=== PATIENT | male | born 1950 | race African-American/Black ===

== ENCOUNTER 2016-04-12 08:10 | Observation (INO) | payer MEDICARE, BC ==
[~2016-04-12] VITALS: Ht 180.3 cm; Wt 93.0 kg
[2016-04-12] VITALS (8 sets, daily range): BP systolic 121–147; BP diastolic 66–82; PULSE 72–90; RESP 16–18; TEMP 96.3–98.9; O2SAT 97–100
--- NOTE | 2016-04-12 08:25 | PD ---
HPI Chief Complaint: seizure Time Seen by Provider: 08:18 Travel History International Travel<30 days: No Contact w/Intl Traveler<30days: No Traveled to known affect area: No History of Present Illness HPI This is a 65-year-old gentleman with a history of seizure 3 years ago, who presents today via EMS after having a witnessed seizure by his . reported this was a "partial seizure" according to EMS. When paramedics arrived , the patient was not actively seizing. They state that he was postictal and was alert and oriented to person and year. Per EMS, he is not taking any medications. His only past medical history was the seizure 3 years ago. The patient is somewhat confused however is able to tell me he is at a hospital and his name. He states he's here in [place] with his to flower buncher or picker his [id number]'s furniture and taken back to [place] where they reside. Patient denies any headache. He did have one episode of emesis just prior to arrival. He denies any nausea at the time of my examination. Patient's arrived roughly 20 minutes after he arrived via EMS. She states that he had what sounds like a tonic-clonic episode. She states this was very similar to his episode 3 years ago however was not as "violent". She states that he had a complete workup 3 years ago and they were unable to find anything. At that time they did not recommend putting him on any medications. PFS Past Medical History Seizures: Yes (3 years ago, one episode) Social History Tobacco Use: No Allergies-Medications (Allergen,Severity, Reaction): Coded Allergies: No Known Allergies (Unverified , 04/12/16) Review of Systems ROS Limitations: Altered Mental Status (mild confusion and postictal state) Except as stated in HPI: all other systems reviewed are Neg General / Constitutional: No: Fever, Chills Eyes: No: Diploplia HENT: No: Headaches Cardiovascular: No: Chest Pain or Discomfort, Palpitations Respiratory: No: Cough, Shortness of Breath Gastrointestinal: Positive: Vomiting, No: Nausea (not currently however he was nauseous and vomited prior to arrival), Abdominal Pain Genitourinary: No: Incontinence Musculoskeletal: No: Weakness, Pain Neurologic: Positive: Seizures (prior to arrival. Reported as "partial" there was no description of the seizure other than that.), No: Weakness, Dizziness, Headache Physical Exam Narrative GENERAL: Well-developed well-nourished gentleman in no acute respiratory distress. SKIN: Warm and dry. HEAD: Atraumatic. Normocephalic. EYES: Pupils equal and round. No scleral icterus. No injection or drainage. ENT: No nasal bleeding or discharge. Mucous membranes pink and moist. NECK: Trachea midline. Supple. CARDIOVASCULAR: Regular rate and rhythm. No murmur appreciated. RESPIRATORY: No accessory muscle use. Clear to auscultation. Breath sounds equal bilaterally. GASTROINTESTINAL: Abdomen soft, non-tender, nondistended. MUSCULOSKELETAL: No obvious deformities. No clubbing. No cyanosis. No edema. NEUROLOGICAL: Awake and confused. No obvious cranial nerve deficits. Motor grossly within normal limits. Normal speech. Data Data Last Documented VS Vital Signs Date Time Temp Pulse Resp B/P Pulse Ox O2 Delivery O2 Flow Rate FiO2 04/12/16 08:51 97 Nasal Cannula 2 04/12/16 08:51 78 16 121/66 04/12/16 08:19 98.9 Orders Complete Blood Count With Diff (04/12/16 08:18) Ct Brain W/O Iv Contrast(Rout) (04/12/16 ) Blood Glucose (04/12/16 08:18) Ecg Monitoring (04/12/16 08:18) Iv Access Insert/Monitor (04/12/16 08:18) Oximetry (04/12/16 08:18) Comprehensive Metabolic Panel (04/12/16 08:18) Electrocardiogram (04/12/16 08:26) Ondansetron Inj (Zofran Inj) (04/12/16 09:30) Labs Laboratory Tests Test 04/12/16 08:40 White Blood Count 3.5 TH/MM3 Red Blood Count 4.57 MIL/MM3 Hemoglobin 14.0 GM/DL Hematocrit 40.2 % Mean Corpuscular Volume 88.0 FL Mean Corpuscular Hemoglobin 30.7 PG Mean Corpuscular Hemoglobin 34.9 % Concent Red Cell Distribution Width 13.8 % Platelet Count 143 TH/MM3 Mean Platelet Volume 8.7 FL Neutrophils (%) (Auto) 58.4 % Lymphocytes (%) (Auto) 30.7 % Monocytes (%) (Auto) 8.2 % Eosinophils (%) (Auto) 1.8 % Basophils (%) (Auto) 0.9 % Neutrophils # (Auto) 2.0 TH/MM3 Lymphocytes # (Auto) 1.1 TH/MM3 Monocytes # (Auto) 0.3 TH/MM3 Eosinophils # (Auto) 0.1 TH/MM3 Basophils # (Auto) 0.0 TH/MM3 CBC Comment DIFF FINAL Differential Comment Sodium Level 137 MEQ/L Potassium Level 3.6 MEQ/L Chloride Level 107 MEQ/L Carbon Dioxide Level 21.0 MEQ/L Anion Gap 9 MEQ/L Blood Urea Nitrogen 10 MG/DL Creatinine 1.26 MG/DL Estimat Glomerular Filtration 57 ML/MIN Rate Random Glucose 111 MG/DL Calcium Level 8.3 MG/DL Total Bilirubin 0.3 MG/DL Aspartate Amino Transf 16 U/L (AST/SGOT) Alanine Aminotransferase 22 U/L (ALT/SGPT) Alkaline Phosphatase 66 U/L Total Protein 7.3 GM/DL Albumin 3.3 GM/DL MDM Medical Decision Making Medical Screen Exam Complete: Yes Emergency Medical Condition: Yes Differential Diagnosis Recurrent seizure versus intracranial hemorrhage versus syncope Narrative Course 65-year-old gentleman with a history of seizure disorder 3 years prior, who presents today after having another witnessed tonic-clonic seizure. The patient was seen and evaluated 3 years ago in [place] and at that time there was no findings to suggest he would need antiseizure medication. The patient is visiting here from [place] and was scheduled to drive back to the ER today. I discussed with both the patient and his that at this point I feel it would be in his best interest to be brought in under 23 hour observation and have our neurologist see him. CT scan shows no evidence of acute findings. Electrolytes and labs show no obvious findings. The patient has had nausea and vomiting prior to arrival and is still nauseous. He's been given Zofran 4 mg times one dose here in the emergency department. Stress the case with Dr. Carmona, senior resident for the admitting service, who is agreeable to bring the patient under their service. Next line Nursing notes were reviewed. This included past medical and social history. Diagnosis Primary Impression: Recurrent seizures Additional Impression: Nausea & vomiting Ever Briseno MD Apr 12, 2016 08:25
[2016-04-12 08:58] LABS: BASOPHIL % 0.9 % (0.0-2.0); EOSINOPHIL # 0.1 TH/MM3 (0-0.4); EOSINOPHIL % 1.8 % (0.0-4.0); HEMATOCRIT 40.2 % (39.0-51.0); HEMO FLAGS DIFF FINAL; LYMPH % 30.7 % (9.0-44.0); LYMPHOCYTE # 1.1 TH/MM3 (1.0-4.8); MEAN CORPUSCULAR HEMOGLOBIN 30.7 PG (27.0-34.0); MEAN CORPUSCULAR HGB CONC 34.9 % (32.0-36.0); MONO % 8.2 % (0.0-8.0); NEUT % 58.4 % (16.0-70.0); PLATELET COUNT 143 TH/MM3 (150-450); RED BLOOD COUNT 4.57 MIL/MM3 (4.50-5.90); RED CELL DISTRIBUTION WIDTH 13.8 % (11.6-17.2); WHITE BLOOD COUNT 3.5 TH/MM3 (4.0-11.0)
[2016-04-12 09:21] LABS: ANION GAP 9 MEQ/L (5-15); AST (GOT) 16 U/L (15-37); BLOOD UREA NITROGEN 10 MG/DL (7-18); CHLORIDE 107 MEQ/L (98-107); GLOMERULAR FILTRATION RATE 57 ML/MIN (>89); POTASSIUM 3.6 MEQ/L (3.5-5.1); SODIUM (NA) 137 MEQ/L (136-145)
[2016-04-12 09:24] LABS: ALKALINE PHOSPHATASE 66 U/L (45-117); ALT (GPT) 22 U/L (12-78); TOTAL BILIRUBIN ADULT 0.3 MG/DL (0.2-1.0)
[2016-04-12] MEDS ORDERED: ONDANSETRON HCL 4 MG/2 ML VIAL IV PUSH ONE (09:30)
--- NOTE | 2016-04-12 09:35 | RADRPT ---
EXAM DATE/TIME: 04/12/2016 09:00 [facility] COMPARISON: No previous studies available for comparison. INDICATIONS : Seizure today. History of seizures 5 years ago. RADIATION DOSE: 56.35 CTDIvol (mGy) MEDICAL HISTORY : Seizures. SURGICAL HISTORY : None. ENCOUNTER: Initial ACUITY: 1 day PAIN SCALE: 0/10 LOCATION: cranial TECHNIQUE: Multiple contiguous axial images were obtained of the head. Using automated exposure control and adj ustment of the mA and/or kV according to patient size, radiation dose was kept as low as reasonably a chievable to obtain optimal diagnostic quality images. FINDINGS: CEREBRUM: The ventricles are normal for age. No evidence of midline shift, mass lesion, hemorrhage or acute in farction. There are small patchy white matter lucencies in the paraventricular region characteristic of chronic small vessel ischemic change. No extra-axial fluid collections are seen. POSTERIOR FOSSA: The cerebellum and brainstem are intact. The 4th ventricle is midline. The cerebellopontine angle i s unremarkable. EXTRACRANIAL: The visualized portion of the orbits is intact. SKULL: The calvaria is intact. No evidence of skull fracture. CONCLUSION: 1. No acute hemorrhage, mass or acute infarction. 2. Findings characteristic of chronic small vessel ischemic change. Tulio Dyson MD on April 12, 2016 at 9:31 Board Certified Radiologist. This report was verified electronically.
[2016-04-12] MEDS ORDERED: ACETAMINOPHEN 325 MG TAB PO PRN (10:15)
[2016-04-12] MEDS ORDERED: LORazepam 2 MG/ML VIAL IV PRN (10:15)
[2016-04-12] MEDS ORDERED: SODIUM CHLORIDE 0.9% FLUSH 5 ML FLUSH IVF PRN (10:15)
--- NOTE | 2016-04-12 10:24 | HHI.HP ---
[facility] Service Family Medicine Primary Care Physician Non-Staff Admission Diagnosis recurrent seizure, nausea/vomiting Diagnoses: International Travel<30 Days: No Contact w/Intl Traveler<30days: No Known Affected Area: No History of Present Illness Patient went to bathroom at 7am this morning, and then got back in bed. Then, around 7:20am, felt and moving, noticed his arms out in front of his chest , hands clenched into fists, with tonic-clonic movements. patient reports that patient was moving his head back and forth, and his eyes rolled back in his head, and he was breathing heavily, drooling and foaming at the mouth. of patient tried to arouse patient for the first 30 seconds of the seizure. She then called hotel for medical assistance; hotel employees arrived within 2 minutes. Patient was still flailing, drooling for 2-3 minutes. animal laboratory technician came a few minutes after that, and at that point, patient appeared asleep. Patient looked around confused a few times, appeared to realize other people were there, and then went in and out of sleep. animal laboratory technician brought him here. Now he seems tired but alert and aware. Patient's reports that this seizure seemed like his other seizure. Patient has a history of one seizure about 3.5 years ago during the summer, which may have been worse. He presented the same way while in bed asleep. felt him move, and noted that his limb and eye movements were consistent with this last seizure. They denied any bowel or bladder incontinence, tongue biting, recent cold or flu symptoms, including fever and chills. Patient denies any chest pain or shortness of breath. There he reported having a normal day yesterday. Patient reports that he played golf Saturday, and likely didn't stay hydrated. ( Tulio Calle MD R1) Review of Systems Constitutional: DENIES: Fever, Weight loss, Chills, Dizziness, Night Sweats Endocrine: DENIES: Polydipsia, Polyuria Eyes: COMPLAINS OF: Blurred vision (glasses for distance), DENIES: Diplopia, Vision loss, Double Vision Ears, nose, mouth, throat: DENIES: Hearing loss, Throat pain, Running Nose Respiratory: DENIES: Cough, Wheezing, Shortness of breath Cardiovascular: DENIES: Chest pain, Palpitations, Dyspnea on Exertion, Lower Extremity Edema (ankles was swelling), Orthopnea Gastrointestinal: COMPLAINS OF: Nausea, Vomiting (in ambulance), DENIES: Abdominal pain, Black stools, Bloody stools Genitourinary: DENIES: Dysuria, Nocturia (once per night) Musculoskeletal: DENIES: Joint pain, Muscle aches Integumentary: DENIES: Rash Neurologic: COMPLAINS OF: Seizures, DENIES: Headache, Localized weakness, Paresthesias (Tulio Calle MD R1) Past Family Social History Past Medical History Denies any medical conditions. Last PCP visit 1.5 years ago. Past Surgical History Denies. Reported Medications 2 aspirin twice per month for aches and pains. (Tulio Calle MD R1) Allergies: Coded Allergies: No Known Allergies (Unverified , 04/12/16) Active Ordered Medications Current Medications Medications (Trade) Dose Ordered Sig/Hari Route Start Time Stop Time Status Last Admin (NS Flush) 2 ml UNSCH PRN IVF 04/12/16 10:15 (NS Flush) 2 ml BID IVF 04/12/16 21:00 (Ativan Inj) 2 mg Q10M PRN IV 04/12/16 10:15 (Tylenol) 650 mg Q4H PRN PO 04/12/16 10:15 (Lovenox Inj) 40 mg Q24H SQ 04/12/16 11:00 04/12/16 11:38 (Zofran Inj) 4 mg Q6H PRN IV PUSH 04/12/16 11:15 (Keppra) 500 mg Q12HR PO 04/12/16 21:00 (Catapres) 0.1 mg Q6H PRN PO 04/12/16 11:15 Family History Brother just had a colon obstruction. Mother had similar condition. Parents have HTN. Daughter DM. Son has scoliosis. 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 works out with the kids. plays golf in [place]. coming from [place] to clean out 's mom's, who just passed, storage unit. No alcohol in 4 years. no smoking, no drugs. (Tulio Calle MD R1) Physical Exam Vital Signs Vital Signs Date Time Temp Pulse Resp B/P Pulse Ox O2 Delivery O2 Flow Rate FiO2 04/12/16 08:51 97 Nasal Cannula 2 04/12/16 08:51 78 16 121/66 97 Nasal Cannula 2 04/12/16 08:51 78 16 121/66 97 2 04/12/16 08:19 98.9 90 16 121/66 100 Physical Exam GENERAL: This is a well-nourished, well-developed patient, tired appearing, but in no apparent distress. SKIN: No rashes, ecchymoses or lesions. Cool and dry. HEAD: Atraumatic. Normocephalic. No temporal or scalp tenderness. EYES: Pupils equal round and reactive. Extraocular motions intact. No scleral icterus. No injection or drainage. ENT: Nose without bleeding, purulent drainage or septal hematoma. Throat without erythema, tonsillar hypertrophy or exudate. Uvula midline. Airway patent. NECK: Trachea midline. No JVD or lymphadenopathy. Supple, nontender, no meningeal signs. CARDIOVASCULAR: Regular rate and rhythm without murmurs, gallops, or rubs. RESPIRATORY: Clear to auscultation. Breath sounds equal bilaterally. No wheezes , rales, or rhonchi. GASTROINTESTINAL: Abdomen soft, non-tender, nondistended. No hepato-splenomegaly , or palpable masses. No guarding. MUSCULOSKELETAL: Extremities without clubbing, cyanosis, or edema. No joint tenderness, effusion, or edema noted. No calf tenderness. Negative Homans sign bilaterally. NEUROLOGICAL: Awake and alert . Cranial nerves II through XII intact. Motor and sensory grossly within normal limits. Five out of 5 muscle strength in all muscle groups. Normal speech. Patient able to spell world backwards, normal finger to nose, normal rapid alternating movements, normal [id number],normal ability to perform three-step commands. Laboratory Laboratory Tests Test 04/12/16 08:40 White Blood Count 3.5 Red Blood Count 4.57 Hemoglobin 14.0 Hematocrit 40.2 Mean Corpuscular Volume 88.0 Mean Corpuscular Hemoglobin 30.7 Mean Corpuscular Hemoglobin 34.9 Concent Red Cell Distribution Width 13.8 Platelet Count 143 Mean Platelet Volume 8.7 Neutrophils (%) (Auto) 58.4 Lymphocytes (%) (Auto) 30.7 Monocytes (%) (Auto) 8.2 Eosinophils (%) (Auto) 1.8 Basophils (%) (Auto) 0.9 Neutrophils # (Auto) 2.0 Lymphocytes # (Auto) 1.1 Monocytes # (Auto) 0.3 Eosinophils # (Auto) 0.1 Basophils # (Auto) 0.0 CBC Comment DIFF FINAL Differential Comment Sodium Level 137 Potassium Level 3.6 Chloride Level 107 Carbon Dioxide Level 21.0 Anion Gap 9 Blood Urea Nitrogen 10 Creatinine 1.26 Estimat Glomerular Filtration 57 Rate Random Glucose 111 Calcium Level 8.3 Total Bilirubin 0.3 Aspartate Amino Transf 16 (AST/SGOT) Alanine Aminotransferase 22 (ALT/SGPT) Alkaline Phosphatase 66 Total Protein 7.3 Albumin 3.3 (Tulio Calle MD R1) Result Diagram: 04/12/16 0840 04/12/16 0840 Imaging Last Impressions Head CT 04/12/16 0000 Signed Impressions: Service Date/Time: , April 12, 2016 09:00 - CONCLUSION: 1. No acute hemorrhage, mass or acute infarction. 2. Findings characteristic of chronic small vessel ischemic change. Tulio Dyson MD Course In the emergency department, (Tulio Calle MD R1) Assessment and Plan Assessment and Plan Patient is a 65-year-old man with a history of one seizure 3 and half years ago who presented to the ED post ictal after a witnessed tonic-clonic seizure. Place in observation for neurology consult. Code Status Full code Discussed Condition With Patient seen and discussed with Dr. Crystal Carmona. Patient discussed with Dr. Hunt. (Tulio Calle MD R1) Attending Attestation THIS CASE WAS DISCUSSED WITH THE RESIDENT PHYSICIAN. I HAVE REVIEWED THE RECORD AND AGREE WITH THE ABOVE NOTE AND PLAN OF CARE WAS DISCUSSED. I HAVE AUTHORIZED THE ORDER FOR PLACEMENT IN OUT-PATIENT OBSERVATION STATUS. (Chavez Hunt MD) Problem List: (1) Generalized tonic-clonic seizure Status: Acute Plan: Patient is 65-year-old man with a history of one previous seizure who presents post ictal after a witnessed generalized tonic-clonic seizure. Neurology consult EEG Keppra 500 mg by mouth twice a day Considering the possibility of TIA. Risk factor analysis including lipid profile, hemoglobin A1c CBC, CMP Neuro checks every 4 hours Monitor vital signs Seizure precautions Physical therapy consult Oxygen as needed UDS Alcohol level TSH (2) Nutrition, metabolism, and development symptoms Status: Acute Plan: Fluids: Patient tolerating by mouth Electrolytes: Monitor and replete as necessary Nutrition: Regular basic diet GI prophylaxis: None currently indicated (3) No contraindication to deep vein thrombosis (DVT) prophylaxis Status: Acute Plan: Lovenox 40 mg subcutaneous daily (Tulio Calle MD R1) Tulio Calle MD R1 Apr 12, 2016 10:24 Chavez Hunt MD Apr 12, 2016 15:24
[2016-04-12] MEDS ORDERED: ONDANSETRON HCL 4 MG/2 ML VIAL IV PUSH PRN (11:15)
[2016-04-12] MEDS ORDERED: cloNIDine HCL 0.1 MG TAB PO PRN (11:15)
[2016-04-12] MEDS: ENOXAPARIN SODIUM 40 MG/0.4 ML SYRINGE SQ SCH (11:38)
--- NOTE | 2016-04-12 13:24 | RADRPT ---
EXAM DATE/TIME: 04/12/2016 12:57 [facility] COMPARISON: CT BRAIN W/O CONTRAST, April 12, 2016, 9:00. INDICATIONS : Seizures. MEDICAL HISTORY : Prior seizure in 2013 SURGICAL HISTORY : None. ENCOUNTER: Initial ACUITY: 1 day PAIN SCORE: 3/10 LOCATION: cranial TECHNIQUE: Multiplanar, multisequence MRI of the brain was performed without contrast. FINDINGS: CEREBRUM: The ventricles are normal for age. No evidence of midline shift, mass lesion, hemorrhage or acute in farction. There is a small lacunar infarct in the deep white matter of the right frontal lobe. No ex traaxial fluid collections are seen. The pituitary gland and suprasellar cistern are normal in confi guration. WHITE MATTER: On the thyroid images there are scattered punctate areas of increased signal in the white matter and centrum semiovale. POSTERIOR FOSSA: The cerebellum and brainstem are intact. The 4th ventricle is midline. The cerebellopontine angle is unremarkable. The cerebellar tonsils are normal in position. DIFFUSION IMAGING: No focal areas of restricted diffusion are seen. No evidence of acute infarction. EXTRACRANIAL: The visualized portions of the orbits and paranasal sinuses are unremarkable. CONCLUSION: 1. No acute hemorrhage, mass or infarction. 2. Findings characteristic of chronic small vessel ischemic change. 3. 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 Tulio Dyson MD on April 12, 2016 at 13:21 Board Certified Radiologist. This report was verified electronically.
--- NOTE | 2016-04-12 13:39 | EKG ---
Date Performed: 04/12/2016 Time Performed: 09:36:14 PTAGE: 65 years EKG: Sinus rhythm WITH OCCASIONAL VENTRICULAR PREMATURE COMPLEXES BORDERLINE ECG NO PREVIOUS TRACING DOCTOR: Bradford Li Interpretating Date/Time 04/12/2016 13:37:50
[2016-04-12 14:19] LABS: HDL CHOLESTEROL 42.5 MG/DL (40.0-60.0)
[2016-04-12 14:23] LABS: CALCIUM-PROTEIN CORRECTED 8.5 MG/DL (8.5-10.1); LDL CHOLESTEROL 96 MG/DL (0-99)
--- NOTE | 2016-04-12 15:12 | HHI.HP ---
[facility] Service Family Medicine Primary Care Physician Non-Staff Admission Diagnosis recurrent seizure, nausea/vomiting Diagnoses: (1) Generalized tonic-clonic seizure (2) Nutrition, metabolism, and development symptoms (3) No contraindication to deep vein thrombosis (DVT) prophylaxis International Travel<30 Days: No Contact w/Intl Traveler<30days: No Known Affected Area: No History of Present Illness 65-year-old male presenting to the emergency department after a witnessed seizure at home. At approximately 720 this morning, witnessed the patient have a generalized tonic, clonic seizure while in bed. She described it as his arms out in front of his chest, his hands clenched into fists, with his eyes rolling back in his head with heavy breathing, drooling, and foaming at the mouth. This episode lasted approximately 2-4 minutes until paramedics arrived. At that point, he appeared post ictal with confusion and sleepiness. Upon arrival to the hospital, he was back to baseline as far as mental status. He has a history of a generalized seizure approximately 3 years ago at which time he underwent a workup including MRI of the brain. His workup was reportedly negative and he was not started on on any antiseizure medication. He has not had any new episodes of seizures since that time. He does have a family history of epilepsy in a cousin, otherwise no other family history of seizures. Patient states that he has been feeling relatively well recently with no recent illness, fevers or chills, or fatigue. He denies any chest pain or shortness of breath or palpitations. Abdomen his live in [place] and are down to [place] for family. Review of Systems Constitutional: DENIES: Fatigue, Fever, Weight loss, Chills, Dizziness, Change in appetite Endocrine: DENIES: Heat/cold intolerance Eyes: DENIES: Blurred vision Ears, nose, mouth, throat: DENIES: Tinnitus, Nasal discharge, Sinus Pain Respiratory: DENIES: Cough, Wheezing, Sputum production, Shortness of breath Cardiovascular: DENIES: Chest pain, Palpitations, Syncope Gastrointestinal: DENIES: Abdominal pain, Nausea, Vomiting Musculoskeletal: DENIES: Joint pain Neurologic: COMPLAINS OF: Seizures, DENIES: Headache, Tremor, Poor Balance Psychiatric: DENIES: Anxiety, Confusion Past Family Social History Past Medical History Denies any medical conditions. Last PCP visit 1.5 years ago. Past Surgical History Denies. Allergies: Coded Allergies: No Known Allergies (Unverified , 04/12/16) Family History Brother just had a colon obstruction. Mother had similar condition. Parents have HTN. Daughter DM. Son has scoliosis. 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 works out with the kids. plays golf in [place]. coming from [place] to clean out 's mom's, who just passed, storage unit. No alcohol in 4 years. no smoking, no drugs. Physical Exam Vital Signs Vital Signs Date Time Temp Pulse Resp B/P Pulse Ox O2 Delivery O2 Flow Rate FiO2 04/12/16 13:50 81 18 133/74 97 Nasal Cannula 2 04/12/16 11:50 82 16 147/82 100 2 04/12/16 10:37 77 16 147/82 100 2 04/12/16 10:22 97 Nasal Cannula 2.00 04/12/16 08:51 97 Nasal Cannula 2 04/12/16 08:51 78 16 121/66 97 Nasal Cannula 2 04/12/16 08:51 78 16 121/66 97 2 04/12/16 08:19 98.9 90 16 121/66 100 Physical Exam GENERAL: This is a well-nourished, well-developed patient, tired appearing, but in no apparent distress. SKIN: No rashes, ecchymoses or lesions. Cool and dry. HEAD: Atraumatic. Normocephalic. EYES: Pupils equal round and reactive. Extraocular motions intact. CARDIOVASCULAR: Regular rate and rhythm without murmurs, gallops, or rubs. RESPIRATORY: Clear to auscultation. Breath sounds equal bilaterally. No wheezes , rales, or rhonchi. GASTROINTESTINAL: Abdomen soft, non-tender, nondistended. MUSCULOSKELETAL: Extremities without clubbing, cyanosis, or edema. NEUROLOGICAL: Awake and alert . Cranial nerves II through XII intact. Motor and sensory grossly within normal limits. Five out of 5 muscle strength in all muscle groups. Normal speech. Laboratory Laboratory Tests Test 04/12/16 08:40 White Blood Count 3.5 Red Blood Count 4.57 Hemoglobin 14.0 Hematocrit 40.2 Mean Corpuscular Volume 88.0 Mean Corpuscular Hemoglobin 30.7 Mean Corpuscular Hemoglobin 34.9 Concent Red Cell Distribution Width 13.8 Platelet Count 143 Mean Platelet Volume 8.7 Neutrophils (%) (Auto) 58.4 Lymphocytes (%) (Auto) 30.7 Monocytes (%) (Auto) 8.2 Eosinophils (%) (Auto) 1.8 Basophils (%) (Auto) 0.9 Neutrophils # (Auto) 2.0 Lymphocytes # (Auto) 1.1 Monocytes # (Auto) 0.3 Eosinophils # (Auto) 0.1 Basophils # (Auto) 0.0 CBC Comment DIFF FINAL Differential Comment Sodium Level 137 Potassium Level 3.6 Chloride Level 107 Carbon Dioxide Level 21.0 Anion Gap 9 Blood Urea Nitrogen 10 Creatinine 1.26 Estimat Glomerular Filtration 57 Rate Random Glucose 111 Calcium Level 8.5 Protein Corrected Calcium 8.5 Phosphorus Level 0.9 Magnesium Level 2.0 Total Bilirubin 0.3 Aspartate Amino Transf 16 (AST/SGOT) Alanine Aminotransferase 22 (ALT/SGPT) Alkaline Phosphatase 66 Total Protein 7.2 Albumin 3.3 Triglycerides Level 159 Cholesterol Level 170 LDL Cholesterol 96 HDL Cholesterol 42.5 Cholesterol/HDL Ratio 4.00 Thyroid Stimulating Hormone 1.540 3rd Gen Ethyl Alcohol Level LESS THAN 3 Result Diagram: 04/12/16 0840 04/12/16 0840 Imaging Last [address] 04/12/16 0000 Signed Impressions: Service Date/Time: April 09:00 - CONCLUSION: 1. No acute hemorrhage, mass or acute infarction. 2. Findings characteristic of chronic small vessel ischemic change. Tulio Dyson MD Brain MRI 04/12/16 0000 Signed Impressions: Service Date/Time: April 12:57 - CONCLUSION: 1. No acute hemorrhage, mass or infarction. 2. Findings characteristic of chronic small vessel ischemic change. 3. 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 Tulio Dyson MD Assessment and Plan Assessment and Plan Patient is a 65-year-old man presenting with a tonic-clonic seizure Problem List: (1) Generalized tonic-clonic seizure Status: Acute Plan: History of seizure activity 3 years ago with negative workup Neurology consulted, appreciate recommendations - Antiseizure medication with Keppra 500 mg twice a day - EEG pending - Seizure precautions - Evaluate for thyroid or electrolyte abnormalities - Neuro checks every 4 hours - Oxygen as needed - UDS - Alcohol level MRI brain: No acute hemorrhage, mass, or infarction. Findings characteristic of chronic small vessel ischemic change. Small, old lacunar infarct in the deep white matter of the right frontal lobe Head CT: No acute hemorrhage, mass, or acute infarction. Findings characteristic of chronic small vessel ischemic changes (2) Nutrition, metabolism, and development symptoms Status: Acute Plan: Fluids: Patient tolerating by mouth Electrolytes: Monitor and replete as necessary Nutrition: Regular basic diet GI prophylaxis: None currently indicated (3) No contraindication to deep vein thrombosis (DVT) prophylaxis Status: Acute Plan: Lovenox 40 mg subcutaneous daily Chavez Hunt MD Apr 12, 2016 15:12
[2016-04-12 18:20] LABS: HEMOGLOBIN A1a 0.9 %; HEMOGLOBIN A1b 1.8 %; HEMOGLOBIN Ao 84.9 %; HEMOGLOBIN LA1C 2.1 %; HEMOGLOBIN P3 3.8 %
--- NOTE | 2016-04-12 18:40 | MG ---
cc: BRODY BRUNER Lab No: [id number] Date: Age: Sex: M Race: White matter changes. Witnessed seizure. Arms stiffened. Zofran. Lovenox. The recording shows a symmetric 11 hertz, 70 microvolt posterior rhythm. When photic stimulation is started, he begins chewing and there is some muscle and movement artifact associated with that over the temporal head regions but just over the right temporal head region there appears to be some focal slowing but it does not have a very large field and appears to have phase reversing left temporal sharply contoured waves at 1 hertz which lasts about a minute and then goes away. It starts with a 5 hertz focal left temporal slowing with a field into the frontal head region and posterior temporal head region and slightly over to the right hemisphere and then slows down to what appears to be epileptiform discharges of a high amplitude focally over the left temporal head region and then gone. Hyperventilation is performed with good effort without significant change in the background. Photic stimulation is again performed without any of those left temporal and abnormalities and this abnormality started at about 21 Hz and continued in between the photic stimulation. IMPRESSION: It appears that there is a seizure focus in the left temporal head region and the patient appeared to have had a seizure during this recording. MD FUENTES Streeter/BUCKY /5:01 PM /6:34 PM
[2016-04-12] MEDS: SODIUM CHLORIDE 0.9% FLUSH 5 ML FLUSH IVF SCH (20:29)
[2016-04-12] MEDS ORDERED: levETIRAcetam 250 MG TAB PO ONE (20:45)
[2016-04-12] MEDS ORDERED: levETIRAcetam 500 MG TAB PO SCH (21:00)
--- NOTE | 2016-04-12 21:31 | MB ---
cc: NAV MALLORY DATE OF CONSULTATION 04/11/16 REASON FOR CONSULTATION Seizure. HISTORY OF PRESENT ILLNESS Mr. Strauss is a very nice 65-year-old man who has a history of seizure in the past, three years ago. He had a workup at that time which was negative including brain MRI. He was not started on any seizure medication. He was doing well until this morning when he had a witnessed grand mal seizure with loss of consciousness, jerking of his arms and legs. His eyes rolled back. He has no recall of the event. It lasted two minutes. He had a postictal state, was brought to the emergency room. He has had no recurrent episodes. He was started on Keppra. PAST MEDICAL HISTORY History of previous seizure, otherwise, unremarkable. No history of meningitis, encephalitis or head trauma. MEDICATIONS Current 1. Keppra which was started in the ER 500 mg b.i.d. 2. Zofran as needed. 3. Lovenox 40 mg subcu daily 4. Ativan p.r.n. seizure. NEUROLOGIC EXAMINATION Temperature is 99.3 degrees, blood pressure 133/77, pulse is 82. Respirations 18. Higher cortical functions are normal. Cranial nerves II-XII are normal in detail. Motor exam shows 5/5 strength of all groups in the upper and lower extremities. There was no drift. Reflexes are symmetric. IMAGING STUDIES MRI of the brain - no acute change, small old lacunar stroke in the right frontal lobe. CT of the brain unremarkable. CARDIOLOGY STUDIES EEG shows evidence of a seizure focus localized to the left temporal lobe region. The patient appeared to have had a seizure during the EEG as well. LABORATORY DATA White count is 3500, hemoglobin 14, hematocrit 40%, platelets 143,000. Sodium is 137, potassium 3.6, chloride 107, CO2 21, the BUN is 10, creatinine 1.26, GFR is 57, glucose 111, cholesterol 170, LDL 96. IMPRESSION Seizure with left temporal lobe focus. MRI showing an old stroke in the right frontal lobe which appears to be old. RECOMMENDATIONS Would increase Keppra to 1000 mg b.i.d. We will also obtain an echocardiogram, carotid ultrasound because of the finding of the old stroke on the MRI. Start him on aspirin as well 80 mg daily. His LDL is slightly elevated, consider statin therapy. MD MITZI Griffith /8:31 PM /9:21 PM
[2016-04-12] MEDS: levETIRAcetam 500 MG TAB PO SCH (21:44)
--- NOTE | 2016-04-12 23:11 | RADRPT ---
EXAM DATE/TIME: 04/12/2016 22:27 [place] COMPARISON: No previous studies available for comparison. INDICATIONS : CVA. MEDICAL HISTORY : Seizures. SURGICAL HISTORY : None. ENCOUNTER: Initial ACUITY: 1 day PAIN SCORE: 0/10 LOCATION: Bilateral neck PEAK SYSTOLIC VELOCITIES (cm/sec): ICA/CCA RATIO: Right: 0.7 Left: 0.9 ICA: Right: 77 Left: 89 CCA: Right: 112 Left: 98 ECA: Right: 133 Left: 153 VERTEBRAL: Right: 56 antegrade Left: 56 antegrade Elevated flow velocities and ICA/CCA ratios have been found to correlate with increased degrees of vessel stenosis, calculated as percentage of diameter relative to a normal segment of distal ICA/CCA FINDINGS: RIGHT CAROTID: Minimal plaque in the bulb. LEFT CAROTID: Minimal plaque of the bulb. VERTEBRAL ARTERIES: Antegrade flow is seen in both vertebral arteries. MISCELLANEOUS: None. CONCLUSION: No significant plaque or narrowing of either carotid. Antegrade flow in both vertebral arteries. Maurizio Samano MD on April 12, 2016 at 23:09 Board Certified Radiologist. This report was verified electronically.
[2016-04-13 04:00] VITALS: BP 131/76; PULSE 70; RESP 16; TEMP 98.1; O2SAT 93
[2016-04-13 07:59] LABS: AUTOMATED NEUTROPHIL # 3.9 TH/MM3 (1.8-7.7); BASOPHIL % 0.5 % (0.0-2.0); EOSINOPHIL % 0.4 % (0.0-4.0); HEMATOCRIT 39.7 % (39.0-51.0); HEMO FLAGS DIFF FINAL; LYMPH % 20.2 % (9.0-44.0); LYMPHOCYTE # 1.1 TH/MM3 (1.0-4.8); MEAN CELL VOLUME 87.8 FL (80.0-100.0); MEAN CORPUSCULAR HEMOGLOBIN 30.4 PG (27.0-34.0); MEAN CORPUSCULAR HGB CONC 34.6 % (32.0-36.0); MONO % 6.1 % (0.0-8.0); NEUT % 72.8 % (16.0-70.0); PLATELET COUNT 140 TH/MM3 (150-450); RED BLOOD COUNT 4.52 MIL/MM3 (4.50-5.90); RED CELL DISTRIBUTION WIDTH 14.1 % (11.6-17.2); WHITE BLOOD COUNT 5.4 TH/MM3 (4.0-11.0)
[2016-04-13 08:31] LABS: ALT (GPT) 23 U/L (12-78); ANION GAP 9 MEQ/L (5-15); AST (GOT) 25 U/L (15-37); BICARBONATE 25.5 MEQ/L (21.0-32.0); BLOOD UREA NITROGEN 12 MG/DL (7-18); CHLORIDE 109 MEQ/L (98-107); GLOMERULAR FILTRATION RATE 81 ML/MIN (>89); SODIUM (NA) 143 MEQ/L (136-145)
[2016-04-13 08:32] VITALS: BP 119/65; PULSE 70; RESP 18; TEMP 98; O2SAT 98
[2016-04-13 08:33] LABS: ALKALINE PHOSPHATASE 60 U/L (45-117); TOTAL BILIRUBIN ADULT 0.5 MG/DL (0.2-1.0)
[2016-04-13 08:51] VITALS: O2SAT 96
[2016-04-13] MEDS ORDERED: ASPIRIN EC 81 MG TABEC PO SCH (09:00)
[2016-04-13] MEDS ORDERED: ATORVASTATIN 10 MG TAB PO SCH (09:00)
[2016-04-13] MEDS: levETIRAcetam 500 MG TAB PO SCH (09:09)
[2016-04-13] MEDS: SODIUM CHLORIDE 0.9% FLUSH 5 ML FLUSH IVF SCH (09:10)
[2016-04-13] MEDS ORDERED: LEVE500 PO (09:48)
[2016-04-13] MEDS ORDERED: LIPI10TA PO (09:48)
[2016-04-13] MEDS ORDERED: ASPI81TA11 PO (09:48)
--- NOTE | 2016-04-13 09:49 | HHI.DCPOC ---
Discharge Care Plan Diagnosis: (1) Recurrent seizures (2) Generalized tonic-clonic seizure Goals to Promote Your Health * To prevent worsening of your condition and complications * To maintain your health at the optimal level Directions to Meet Your Goals Take your medications as prescribed Follow your dietary instruction Follow activity as directed Keep your appointments as scheduled Take your immunizations and boosters as scheduled If your symptoms worsen call your PCP, if no PCP go to Urgent Care Center or Emergency Room Smoking is Dangerous to Your Health. Avoid second hand smoke Call the 24-hour hour crisis hotline for domestic abuse at Lorenzo Nichols MD R3 Apr 13, 2016 09:49
--- NOTE | 2016-04-13 10:29 | HHI.FPPN ---
Subjective Remarks No acute events overnight. Vital signs have remained stable. Patient has not had recurrence of seizures. He has been examined by neurology. EEG confirmed a left temporal seizure focus. It was recommended the patient be on Keppra 1000mg BID, low-dose Asprin, statin therapy, and undergo further eval including ultrasound of carotids and echocardiogram. Patient denies any new concerns at this time. He denies chest pain or shortness of breath. Patient's is present at bedside, both her and the patient's questions were answered to their satisfaction and both expressed understanding and agreement with the plan. ( Lorenzo Nichols MD R3) Objective Vitals Vital Signs Date Time Temp Pulse Resp B/P Pulse Ox O2 Delivery O2 Flow Rate FiO2 04/13/16 08:51 96 21 04/13/16 08:32 98.0 70 18 119/65 98 04/13/16 04:00 98.1 70 16 131/76 93 04/12/16 19:48 98.3 79 18 133/77 98 04/12/16 19:32 Nasal Cannula 2.00 04/12/16 16:41 96.3 72 18 128/77 99 04/12/16 13:50 81 18 133/74 97 Nasal Cannula 2 04/12/16 11:50 82 16 147/82 100 2 04/12/16 10:37 77 16 147/82 100 2 (Lorenzo Nichols MD R3) Result Diagram: 04/13/1612 04/13/16 0612 Objective Remarks GENERAL: well-nourished, well-developed patient, in no apparent distress. SKIN: No rashes, ecchymoses or lesions. Cool and dry. HEAD: Atraumatic. Normocephalic. EYES: Pupils equal round and reactive. Extraocular motions intact. No scleral icterus. No injection or drainage. CARDIOVASCULAR: Regular rate and rhythm without murmurs, gallops, or rubs. RESPIRATORY: Clear to auscultation. Breath sounds equal bilaterally. No wheezes , rales, or rhonchi. GASTROINTESTINAL: Abdomen soft, non-tender, nondistended. MUSCULOSKELETAL: Extremities without clubbing, cyanosis, or edema. No joint tenderness, effusion, or edema noted. No calf tenderness. NEUROLOGICAL: Awake and alert . Cranial nerves II through XII intact. Motor and sensory grossly within normal limits. Five out of 5 muscle strength in all muscle groups. Normal speech. (Lorenzo Nichols MD R3) A/P Assessment and Plan Patient is a 65-year-old man presenting with recurrent tonic-clonic seizure Discharge Planning Pending completion of medical evaluation, anticipate discharge to home this afternoon. Patient will need follow-up with Neurology and PCP in [place]. ( Lorenzo Nichols MD R3) Attending Attestation Patient examined and case discussed with resident physicians I have read the above note and agree with the assessment/plan as discussed with me I was involved in all medical decision making for this patient Chavez Hunt M.D. (Chavez Hunt MD) Problem List: (1) Generalized tonic-clonic seizure Status: Acute Plan: History of seizure activity 3 years ago with negative workup. This is now his first recurrence. Currently asymptomatic without persisting sequelae. EEG confirmed left temporal seizure focus - Neurology following, Dr. Mckenzie-- thank you for rec's - Keppra 1000mg BID - Seizure precautions - Follow-up with neurology as outpatient - No driving, swimming, or operating machinery until cleared by neuro Imaging: MRI brain: No acute hemorrhage, mass, or infarction. Findings characteristic of chronic small vessel ischemic change. Small, old lacunar infarct in the deep white matter of the right frontal lobe Head CT: No acute hemorrhage, mass, or acute infarction. Findings characteristic of chronic small vessel ischemic changes (2) History of CVA (cerebrovascular accident) Status: Acute Plan: MRI of brain: revealed a "small, old lacunar infarct in the deep white matter of the right frontal lobe." - Begin Asprin 81mg daily - Begin Atorvastatin 10mg daily - U/S carotids pending - Echocardiogram pending (3) Nutrition, metabolism, and development symptoms Status: Acute Plan: Fluids: Patient tolerating by mouth Electrolytes: Monitor and replete as necessary Nutrition: Regular basic diet GI prophylaxis: None currently indicated (4) No contraindication to deep vein thrombosis (DVT) prophylaxis Status: Acute Plan: Lovenox 40 mg subcutaneous daily (Lorenzo Nichols MD R3) Lorenzo Nichols MD R3 Apr 13, 2016 10:29 Chavez Hunt MD Apr 13, 2016 15:26
[2016-04-13] MEDS: ENOXAPARIN SODIUM 40 MG/0.4 ML SYRINGE SQ SCH (11:00)
--- NOTE | 2016-04-13 17:04 | EC ---
Study Study Date:04/13/2016 STUDY CONCLUSIONS SUMMARY - Left ventricle: The cavity size was normal. Wall thickness was normal. Systolic function was normal. The estimated ejection fraction was in the range of 55% to 60%. Wall motion was normal; there were no regional wall motion abnormalities. - Aortic valve: Valve area: 2.78cm^2(VTI). Valve area: 2.62cm^2 (Vmax). - Mitral valve: Mild regurgitation. - Tricuspid valve: Mild regurgitation. - Pulmonary arteries: PA peak pressure: 34mm Hg (S). Impressions: No cardiac source of emboli was indentified. If LV function is below 40, please consider prescribing an ACEI or ARB or document rationale for non-use. PROCEDURE DATA STUDY STATUS: Elective. Procedure: Transthoracic echocardiography. Image quality was good. Scanning was performed from the parasternal, apical, and subcostal acoustic windows. Study completion: The patient tolerated the procedure well. Transthoracic echocardiography. M-mode, complete 2D, complete spectral Doppler, and color Doppler. Height: Height: 71in. Weight: Weight: 204.6lb. Body mass index: BMI: 28.6kg/m^2. Body surface area: BSA: 2.13m^2. Patient status: Inpatient. CARDIAC ANATOMY LEFT VENTRICLE: The cavity size was normal. Wall thickness was normal. Systolic function was normal. The estimated ejection fraction was in the range of 55% to 60%. Wall motion was normal; there were no regional wall motion abnormalities. AORTIC VALVE: Trileaflet; normal thickness leaflets. Doppler: Transvalvular velocity was within the normal range. There was no stenosis. No regurgitation. Valve area: 2.78cm^2(VTI). Indexed valve area: 1.31cm^2/m^2 (VTI). Valve area: 2.62cm^2 (Vmax). Indexed valve area: 1.23cm^2/m^2 (Vmax). Mean gradient: 3mm Hg (S). AORTA: Aortic root: The aortic root was normal in size. MITRAL VALVE: Structurally normal valve. Doppler: Transvalvular velocity was within the normal range. There was no evidence for stenosis. Mild regurgitation. LEFT ATRIUM: The atrium was normal in size. RIGHT VENTRICLE: The cavity size was normal. Wall thickness was normal. PULMONIC VALVE: Doppler: Transvalvular velocity was within the normal range. There was no evidence for stenosis. No regurgitation. TRICUSPID VALVE: Structurally normal valve. Doppler: Transvalvular velocity was within the normal range. Mild regurgitation. PULMONARY ARTERY: The main pulmonary artery was normal-sized. Systolic pressure was within the normal range. RIGHT ATRIUM: The atrium was normal in size. PERICARDIUM: There was no pericardial effusion. SYSTEMIC VEINS: Inferior vena cava: The vessel was normal in size. Patient weight: 204.6lb _Ejection fraction:_ 65-75% _Fractional shortening:_ 32% up to 5Kg 5-11.5Kg 11.6-22.9Kg 23-45Kg 45-57Kg Aortic Root 7-13 <17 13-22 17-27 17-27 LA diam 6-13 <23 24-38 33-47 37-40 RVID 10-17 7-15 7-15 7-18 8-17 LVIDd 12-22 <32 24-38 33-47 37-40 LVPW 2-4 3-6 5-7 6-8 7-8 IVS 2-4 3-6 5-7 6-8 7-8 BASIC MEASUREMENTS ADULT NORMAL Left ventricle LV internal dimension, ED, chordal 49.7 mm 43-52 level, PLAX LV internal dimension, ES, chordal *38.7 mm 23-38 level, PLAX Fractional shortening, chordal level, *22 % >29 PLAX LV posterior wall thickness, ED 10.3 mm IVS/LVPW ratio, ED 0.99 <1.3 Ventricular septum Septal thickness, ED 10.2 mm Aortic valve Leaflet separation 22 mm 15-26 Aorta Root diameter, ED 33 mm Left atrium Anterior-posterior dimension 39 mm Anterior-posterior dimension index 1.83 cm/m^2 <2.2 BASIC MEASUREMENTS ADULT NORMAL Aortic valve Leaflet separation 22 mm 15-26 DOPPLER MEASUREMENTS ADULT NORMAL Main pulmonary artery Pressure, S *34 mm Hg =30 Aortic valve Peak velocity, S 114 cm/s Mean velocity, S 79.4 cm/s VTI, S 20 cm Mean gradient, S 3 mm Hg Valve area, VTI 2.78 cm^2 Valve area index, VTI 1.31 cm^2/m^2 Valve area, Vmax 2.62 cm^2 Valve area index, Vmax 1.23 cm^2/m^2 Mitral valve Peak E-wave velocity 48.4 cm/s Peak A-wave velocity 65.6 cm/s Deceleration time *394 ms 150-230 Peak E/A ratio 0.7 Tricuspid valve Regurgitant peak velocity 274 cm/s Peak RV-RA gradient, S 30 mm Hg Maximal regurgitant velocity 274 cm/s Systemic veins Estimated CVP 5 mm Hg Right ventricle RV pressure, S *35 mm Hg <30 Pulmonic valve Peak velocity, S 60.2 cm/s LEGEND: Mean values are shown as u=mean value. Asterisk (*) byrnes values outside specified normal range. Prepared and signed by Romero Galindo [id number]
[2016-04-13] MEDS ORDERED: PRAVASTATIN SOD 20 MG TAB PO SCH (21:00)
--- NOTE | 2016-04-14 08:54 | EKG ---
Date Performed: 04/13/2016 Time Performed: 05:46:36 PTAGE: 65 years EKG: Sinus rhythm NORMAL ECG PREVIOUS TRACING : 04/12/2016 09.36 Compared to previous tracing, PVCs no longer present, other heath no significant change. DOCTOR: Genaro Elam Interpretating Date/Time 04/14/2016 08:53:45
== END 2016-04-13 18:42 | disposition home or self-care (01) ==
LOC: NEPC 08:10 → NEDA 09:49 → NEPGCP 15:30
PROVIDERS: ADMIT Family Medicine; ATTEND Family Medicine
DX: G40.409 Other generalized epilepsy and epileptic syndromes, not intractable, without status epilepticus (principal); R11.2 Nausea with vomiting, unspecified; R41.0 Disorientation, unspecified; R53.83 Other fatigue; Z86.73 Personal history of transient ischemic attack (TIA), and cerebral infarction without residual deficits; Z79.899 Other long term (current) drug therapy
CPT/HCPCS: 70450; 70551; 80053; 80061; 80320; 83036; 83735; 84100; 84155; 84443; 84484; 85025; 93005; 93306; 93880; 95819; 96374; 97162; 99285; G0378; G8987; G8988; J1650; J2405